=== PATIENT | female | born 1945 | race Asian ===

== ENCOUNTER → 2024-05-31 | Outpatient (CLI) | payer MEDICARE, MEDICAID, SELFPAY ==
--- NOTE | 2024-05-31 16:59 | XR_ITS ---
Examination: PA lateral chest 2 views TECHNIQUE: Upright PA lateral chest 2 views Exam date and time: May 31, 2024 1741 hours Comparison 01/06/2023 INDICATIONS: Coughing beginning 5 days ago. FINDINGS: Significant hyperexpansion Normal heart size Again noted extensive bilateral parenchymal disease which may represent scarring Severe osteopenia IMPRESSION: COPD Extensive bilateral parenchymal disease which may represent scarring, consider high resolution CT chest without contrast follow-up
--- NOTE | 2024-05-31 16:59 | XR_ITS ---
Examination: Right knee 4 views TECHNIQUE: AP oblique lateral axial right knee 4 views, standing Exam date and time: May 31, 2024 1743 hours INDICATIONS: Right knee pain years FINDINGS: Severe osteopenia Severe tricompartment joint narrowing, [id number] medial lateral joint spaces No fracture Small knee effusion IMPRESSION: Advanced tricompartment joint narrowing
== END | disposition home or self-care (01) ==
LOC: CDIM 16:52
PROVIDERS: PCP Family Medicine; Referring Provider Physician Assistant; Visit Provider Physician Assistant
DX: J44.9 Chronic obstructive pulmonary disease, unspecified (principal); R91.8 Other nonspecific abnormal finding of lung field; M25.861 Other specified joint disorders, right knee
CPT/HCPCS: 71046; 73564

== ENCOUNTER → 2024-07-29 | Outpatient (CLI) | payer MEDICARE, MEDICAID, SELFPAY ==
--- NOTE | 2024-07-29 12:20 | XR_ITS ---
Examination: Bone densitometry Date and time of exam:July 29, 2024 1210 hours INDICATIONS: Post menopausal, postmenopausal right hip and clavicle fracture, prednisone administration for COPD Technique: Lumbar spine and hip total bone mineralization values of an calculated. Peak reference and age match control results have been displayed. Findings: Lumbar spine total bone mineralization is0.653 gm/cm2. This is 3.6 standard deviations below peak reference. This is 1.0 standard deviations below age-matched controls. Hip total bone mineralization is 0.624 gm/cm2 This is 2.6 standard deviations below peak reference. This is 0.6 standard deviations below age-matched controls Impression: There is osteoporosis based on lumbar spine measurements. There is osteoporosis based on hip measurements
== END | disposition home or self-care (01) ==
LOC: CDIM 11:22
PROVIDERS: Referring Provider Physician Assistant; Visit Provider Physician Assistant
DX: M81.0 Age-related osteoporosis without current pathological fracture (principal)
CPT/HCPCS: 77080